=== PATIENT | male | born 1990 | race American Indian/Alaskan Native ===

== ENCOUNTER 2018-12-26 17:51 | Emergency (ER) | payer OTHER ==
--- NOTE | 2018-12-26 18:01 | Event Note ---
ED Screening Note Date of service: 12/26/18 Time: 17:59 ED Screening Note: This is a 28 y.o. M. that presents to the ER with left eye, swelling, and left ear clogged x 3 days. Current smoker This initial assessment/diagnostic orders/clinical plan/treatment(s) is/are subject to change based on patients health status, clinical progression and re- assessment by fellow clinical providers in the ED. Further treatment and workup at subsequent clinical providers discretion. Patient/guardian urged not to elope from the ED as their condition may be serious if not clinically assessed and managed. Initial orders include: ACC for further evaluation
[2018-12-26] MEDS ORDERED: BSS OU ONE (19:58)
[2018-12-26] MEDS ORDERED: FUL-GLO OP ONE (19:58)
[2018-12-26] MEDS ORDERED: TETRACAINE 0.5% OU ONE (20:00)
--- NOTE | 2018-12-26 20:04 | Emergency Department Report ---
Eye Injury/Foreign Body - HPI Duration: Today Eye Location: Left Tetanus Status: Up to Date Eye Symptoms: Eye Pain: No, Blurred Vision: No, Eye Redness: Yes Other History: 28-year-old -[place] male presents to the emergency room complaining of left eye irritation that started this morning. She reports that he has mucous discharge burning and itching. [place] He denies any past medical history takes no medications on a daily basis and has no known drug allergies. ED Review of Systems ROS: Stated complaint: L EYE PAIN/DISCHARGE Other details as noted in HPI Eyes: eye discharge ED Past Medical Hx - Past Medical History Previous Medical History?: No Hx Hypertension: No Hx GERD: No - Surgical History Past Surgical History?: No - Social History Smoking Status: Current Every Day Smoker Substance Use Type: Alcohol - Medications Home Medications: Home Medications Medication Instructions Recorded Confirmed Last Taken Type Erythromycin [Erythromycin Ophth 1 applic OP QID 10 Days #1 tube 12/26/18 Unknown Rx Oint] Eye Injury Exam - Exam General: Vital signs noted. No distress. Alert and acting appropriately. ED Course Vital Signs 12/26/18 17:59 Temperature 98.2 F Pulse Rate 108 H Respiratory 18 Rate Blood Pressure 140/77 O2 Sat by Pulse 99 Oximetry ED Medical Decision Making - Medical Decision Making 28-year-old -[place] male presents to the emergency room complaining of left eye irritation that started this morning. She reports that he has mucous discharge burning and itching. Patient reports [place] He denies any past medical history takes no medications on a daily basis and has no known drug allergies. Fluorescein examined negative for corneal abrasion or corneal ulceration. She'll be treated for conjunctivitis. Patient placed on erythromycin ophthalmic eyedrops. Critical care attestation.: If time is entered above; I have spent that time in minutes in the direct care of this critically ill patient, excluding procedure time. ED Disposition Clinical Impression: Conjunctivitis Qualifiers: Conjunctivitis type: acute Acute conjunctivitis type: unspecified Laterality: left Qualified Code(s): H10.32 - Unspecified acute conjunctivitis, left eye Disposition: DC-01 TO HOME OR SELFCARE Is pt being admited?: No Does the pt Need Aspirin: No Condition: Stable Instructions: Conjunctivitis (ED) Additional Instructions: Use eye ointment as prescribed. 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 Issue to wash her hands before and after application. Prescriptions: Erythromycin [Erythromycin Ophth Oint] 1 applic OP QID 10 Days #1 tube Forms: Work/School Release Form(ED)
[2018-12-26 23:48] VITALS: BP 131/79
== END 2018-12-26 20:37 | disposition home or self-care (01) ==
LOC: ED 17:51
DX: H10.9 Unspecified conjunctivitis (principal); F17.200 Nicotine dependence, unspecified, uncomplicated; Z79.899 Other long term (current) drug therapy
CPT/HCPCS: 99282